=== PATIENT | female | born 1960 | race Caucasian/White ===

== ENCOUNTER 2021-08-16 09:34 | Emergency (ER) | payer OTHER ==
[~2021-08-16 09:34] MED LIST: DEPAKOTE ER250 MG PO; DEPAKOTE ER500 MG PO; DILANTIN100 MG PO; NAPROSYN500 MG PO; PHENYTOIN SODI100 MG PO; PROPRANOLOL HCL20 MG PO
== END 2021-08-16 15:45 | disposition home or self-care (01) ==
LOC: ER1 09:34
DX: S90.112A Contusion of left great toe without damage to nail, initial encounter (principal); I10 Essential (primary) hypertension; F17.200 Nicotine dependence, unspecified, uncomplicated; W06.XXXA Fall from bed, initial encounter
CPT/HCPCS: 73564; 73630; 99283